=== PATIENT | male | born 1970 | race Caucasian/White ===

== ENCOUNTER 2021-05-23 13:19 | Emergency (ER) | payer OTHER, MEDICARE ==
[~2021-05-23] VITALS: Ht 177.8 cm; Wt 136.1 kg
[2021-05-23] MEDS ORDERED: MORPHINE SULFATE INJ 4 MG/ML INJ 1ML IV PRN (14:00)
[2021-05-23] MEDS ORDERED: ONDANSETRON HCL INJ 2MG/ML 2ML 2 MG/ML VIAL IV NR (14:00)
[2021-05-23 14:30] LABS: BASOPHILS # (AUTO) 0.1 (0.0-0.1); BASOPHILS % 0.8 % (0.0-1.0); EOSINOPHILS # (AUTO) 0.5 (0.0-0.4); EOSINOPHILS % 2.7 % (0.0-6.0); HEMATOCRIT 54.3 % (38.2-49.6); LYMPHOCYTES # (AUTO) 3.3 (1.0-3.2); LYMPHOCYTES % 17.9 % (18.0-39.1); MEAN CORPUSCULAR HEMOGLOBIN 29.3 pg (28-32); MEAN CORPUSCULAR HGB CONC 33.1 g/dL (31-35); MEAN CORPUSCULAR VOLUME 88.4 fL (81-99); MONOCYTES # (AUTO) 1.3 (0.2-0.8); NEUTROPHILS # (AUTO) 12.9 (2.1-6.9); NEUTROPHILS % 70.6 % (38.7-80.0); PLATELET COUNT 378 x10e3/uL (140-360); RED BLOOD COUNT 6.14 x10e6/uL (4.3-5.7); RED CELL DISTRIBUTION WIDTH 13.2 % (11.7-14.4)
[2021-05-23 14:44] LABS: ALBUMIN 3.8 g/dL (3.5-5.0); ALBUMIN/GLOBULIN RATIO 1.1 (0.8-2.0); ANION GAP 15.9 mmol/L (8-16); CALCIUM 8.4 mg/dL (8.4-10.2); CREATININE, SERUM 0.84 mg/dL (0.72-1.25); POTASSIUM 3.9 mmol/L (3.5-5.1)
[2021-05-23] MEDS ORDERED: SODIUM CHLORIDE 0.9% 50ML 50 ML ONE (15:02)
[2021-05-23] MEDS ORDERED: IOPAMIDOL 370 MG/ML 200 ML INFUS..BTL INJ ONE (15:02)
[2021-05-23 16:57] LABS: BASOPHILS # (AUTO) 0.1 (0.0-0.1); BASOPHILS % 0.8 % (0.0-1.0); EOSINOPHILS # (AUTO) 0.5 (0.0-0.4); EOSINOPHILS % 2.5 % (0.0-6.0); HEMATOCRIT 55.5 % (38.2-49.6); HEMOGLOBIN 17.9 g/dL (14.0-18.0); LYMPHOCYTES # (AUTO) 3.4 (1.0-3.2); LYMPHOCYTES % 18.3 % (18.0-39.1); MEAN CORPUSCULAR HEMOGLOBIN 28.6 pg (28-32); MEAN CORPUSCULAR HGB CONC 32.3 g/dL (31-35); MEAN CORPUSCULAR VOLUME 88.7 fL (81-99); MONOCYTES # (AUTO) 1.2 (0.2-0.8); MONOCYTES % 6.5 % (4.4-11.3); NEUTROPHILS # (AUTO) 13.1 (2.1-6.9); NEUTROPHILS % 70.9 % (38.7-80.0); PLATELET COUNT 382 x10e3/uL (140-360); RED BLOOD COUNT 6.26 x10e6/uL (4.3-5.7)
[2021-05-23 17:00] LABS: CLARITY,URINE SL CLOUDY (CLEAR); COLOR,URINE YELLOW (YELLOW)
[2021-05-23 17:01] LABS: KETONES,URINE TRACE (NEGATIVE); LEUKOCYTE ESTERASE ,URINE NEGATIVE (NEGATIVE); NITRITE,URINE NEGATIVE (NEGATIVE); PROTEIN,URINE DIPSTICK NEGATIVE (NEGATIVE); URINE UROBILINOGEN 0.2 mg/dL (0.2 - 1)
[2021-05-23 17:12] LABS: WBC,URINE (MAN) 0-5 /HPF (0-5)
== END 2021-05-23 17:23 | disposition home or self-care (01) ==
LOC: ER 13:52
DX: R10.12 Left upper quadrant pain (principal); R07.89 Other chest pain; R11.2 Nausea with vomiting, unspecified; S22.42XA Multiple fractures of ribs, left side, initial encounter for closed fracture; W01.0XXA Fall on same level from slipping, tripping and stumbling without subsequent striking against object, initial encounter; Y93.01 Activity, walking, marching and hiking; E11.65 Type 2 diabetes mellitus with hyperglycemia; B20 Human immunodeficiency virus [HIV] disease; G47.30 Sleep apnea, unspecified; E66.9 Obesity, unspecified; Z20.822 Contact with and (suspected) exposure to COVID-19; F17.210 Nicotine dependence, cigarettes, uncomplicated
CPT/HCPCS: 36415; 71101; 74177; 80053; 81001; 83605; 83690; 84484; 85025; 87040; 93005; 99284; Q9967; U0002

== ENCOUNTER 2021-07-17 03:30 | Emergency (ER) | payer MEDICARE ==
[~2021-07-17] VITALS: Ht 177.8 cm; Wt 136.1 kg
[2021-07-17] MEDS ORDERED: IBUPROFEN 600 MG TAB PO STA (03:37)
[2021-07-17] MEDS ORDERED: AUGMENTIN 875-1 EACH PO (03:37)
[2021-07-17] MEDS ORDERED: PERIDEX473 M1 PO (03:38)
[2021-07-17] MEDS ORDERED: IBUPROFEN 600 MG TAB ONE (03:46)
== END 2021-07-17 03:40 | disposition home or self-care (01) ==
LOC: ER 03:35
DX: K02.9 Dental caries, unspecified (principal); I10 Essential (primary) hypertension; E11.9 Type 2 diabetes mellitus without complications; B20 Human immunodeficiency virus [HIV] disease
CPT/HCPCS: 99283